=== PATIENT | male | born 1970 | race Hispanic/Latino ===

== ENCOUNTER 2022-10-27 18:23 | Emergency (ER) | payer OTHER ==
[2022-10-27] VITALS (8 sets, daily range): BP systolic 79–130; BP diastolic 34–89
[~2022-10-27] VITALS: Ht 177.8 cm; Wt 86.1 kg
[2022-10-27 19:40] LABS: BASO% 0.3 % (0-3); EOS% 1.1 % (0-8); HEMATOCRIT 42.3 % (39.0-50.0); IMMATURE GRANULOCYTES 0.3 % (0.0-5.0); LYMPH% 41.4 % (15-41); MEAN CELL VOLUME 88.5 fL CALC (80.0-100.0); MEAN CORPUSCULAR HGB 31.4 pG CALC (26.0-32.0); MEAN CORPUSCULAR HGB CONC 35.5 g/dL CAL (32.0-36.0); MONO% 5.1 % (2-13); NEUT# 3.91 thou/uL (1.82-7.42); NEUT% 51.8 % (42-76); RED BLOOD COUNT 4.78 mill/uL (4.70-6.10); RED CELL DISTRI WIDTH 11.2 % (11.5-15.5)
[2022-10-27 19:54] LABS: ALBUMIN 4.1 g/dL (3.2-5.0); ALKALINE PHOSPHATASE 134 u/l (38-126); ANION GAP 19 (6-22 (CALC)); BILIRUBIN, TOTAL 0.4 mg/dL (0.2-1.3); BUN 16 mg/dL (9-20); BUN/CREATININE RATIO 18 (12-20 (CALC)); CARBON DIOXIDE 22 mmol/l (22-30); CHLORIDE 101 mmol/l (95-108); CREATININE 0.9 mg/dL (0.7-1.3); ETHYL ALCOHOL 299 mg/dl (0-30); GFR FOR AFR.AMER. > 60 ML/MIN (>=60 (CALC)); GFR OTHER RACES > 60 ML/MIN (>=60 (CALC)); LIPASE 237 u/l (23-300); SGOT/AST 23 u/l (17-59); SODIUM 138 mmol/l (137-146); TOTAL PROTEIN 6.6 g/dL (6.3-8.2)
[2022-10-28 08:33] VITALS: BP 111/70
== END 2022-10-28 08:45 | disposition home or self-care (01) | DRG 897 ==
LOC: ED 18:23 → EDBD 22:22 → ED 10-28 08:45
PROVIDERS: Family Medicine
DX: F10.129 Alcohol abuse with intoxication, unspecified (principal); Y90.7 Blood alcohol level of 200-239 mg/100 ml; V49.40XA Driver injured in collision with unspecified motor vehicles in traffic accident, initial encounter